=== PATIENT | female | born 1995 | race Caucasian/White ===

== ENCOUNTER 2020-01-12 08:42 | Outpatient (CLI) | payer OTHER, SELFPAY ==
--- NOTE | 2020-01-12 | EST_ITS ---
Patient Info Name: Flower Dupree Age: 24 years : 1995 Gender: Female Ht: 70 in Wt: 210 lbs BSA: 2.19 m2 HR: 69 bpm Technical Quality: Good Exam Date: 01/12/2020 9:42 AM Exam Location: [facility] Patient Status: Outpatient Admit Date: 01/12/2020 Staff Ordering Physician: Zac, Jaswinder Kwan MD Honing Job Setter: Lorena Alba RDCS Attending Provider: ZacJaswinder MD Referring Physician: Kevin POE; Exercise Technologist: Stephanie Jha RDCS Exam Type: CA stress echo Study Info Indications R06.02 - Shortness of breath Treadmill exercise stress echocardiogram is performed. Summary 1. Normal left venticular systolic function with no regional wall motion abnormalities noted at rest. 2. No regional wall motion abnormalities noted post stress. 3. Decreased exercise tolerance for age. 4. Hypertensive blood pressure response. 5. Accelerated heart rate response to exercise, with a heart rate of 136 at minute 2 of exercise suggesting deconditioning, anemia, inappropriate sinus tachycardia etc. 6. Negative stress echo for ischemia. Stress Echo Findings Left Ventricle Normal left venticular systolic function with no regional wall motion abnormalities noted at rest. Overall global left ventricular systolic function Improved post stress. No regional wall motion abnormalities noted post stress. Left Ventricle Left ventricular chamber dimension is normal. Left ventricular systolic function is Empty with an estimated ejection fraction of Empty. There is no increased left ventricular wall thickness. Left ventricular septal wall motion is normal. The left ventricular diastolic function is normal. Right Ventricle Right ventricular chamber dimension is normal. Right ventricular systolic function is normal. Left Atria Left atrial chamber dimension is normal. Right Atria Right atrial chamber dimension is normal. Aortic Valve The aortic valve is trileaflet. There is no aortic valve sclerosis. There is no aortic valve stenosis. There is no aortic valve regurgitation. Pulmonary Valve The pulmonic valve is normal. There is no pulmonic valve stenosis. There is no pulmonic regurgitation. Mitral Valve The mitral valve has normal leaflets. There is no mitral valve stenosis. There is no mitral valve regurgitation. Tricuspid Valve The tricuspid valve leaflets are normal. There is no significant tricuspid valve stenosis. There is no tricuspid valve regurgitation. No pulmonary hypertension, estimated pulmonary arterial systolic pressure is Empty. Pericardium The pericardium appears normal. There is no pericardial effusion. Inferior Vena Cava Normal inferior vena cava with <50% collapse upon inspiration consistent with Empty right atrial pressure, Empty. Aorta The aortic root size at the sinus of Valsalva is normal. The prox ascending aorta size is normal. Protocol: Alexander Stress ECG Details Stage: REST Duration (min): 7 min : 5 sec Speed (mph): 0.0 Grade (%): 0 HR (bpm): 77 SBP (mmHg): 128 DBP (mmHg): 75 METS: --- Stage: REST Duration (min): 25 min : 58 sec Speed (mph): 0.0 Grade (%): 0 HR (bpm): 92 SBP (mmHg): 128 DBP (mmHg): 75 METS: --- Stage: STAGE 1 Duration (min): 1 min : 0 sec Speed (mph):
== END 2020-01-12 08:43 | disposition home or self-care (01) ==
LOC: ANHCARD 08:44
PROVIDERS: PCP Internal Medicine; Visit Provider Family Medicine
DX: R06.02 Shortness of breath (principal)
CPT/HCPCS: 93351

== ENCOUNTER 2022-09-08 08:58 | Outpatient (CLI) | payer OTHER, SELFPAY ==
--- NOTE | 2022-09-29 11:36 | WPDSLEEPSTUD ---
Sleep Study Date of Study: 09/08/22 Ordering Provider: Mg Austin APRN Interpreting Physician: Julieta Long MD Sleep Study Type: Split Polysomnogram Height: 1.78 m Weight: 104.326 kg Body Mass Index: 33.0 Neck Circumference (inches): 14.5 [place]: 19 Reason for Sleep Study Hypersomnolence Sleep History Flower Dupree is a 27-year-old female Who occasionally awakens from sleep feeling short of breath. She constantly awakens at night with heartburn, belching or coughing. She occasionally snores, rarely loud enough that others complain about it. She constantly has difficulty sleeping with a cold. She occasionally wakes up gasping for breath at night. She does not have breathing problems at night observed by others. She occasionally sweats excessively at night. She frequently notices her heart pounding or beating irregularly at night. She frequently falls asleep during the day, frequently falls asleep involuntarily, never while driving. She rarely has loss of muscle tone with strong emotion. 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 She occasionally feels paralyzed on waking or falling asleep. She occasionally has vivid dreamlike scenes on waking or falling asleep. She rarely feels afraid to go to sleep. She frequently has nightmares. She occasionally remembers her dreams. She constantly has racing thoughts. She rarely feels sad or depressed. She rarely feels anxious. She constantly has muscular tension. She occasionally notices parts of her body jerking. She does not kick at night. She occasionally has crawling and aching feelings in her legs. She occasionally has leg pain at night. She rarely has morning jaw pain. She frequently grinds her teeth during sleep. She constantly is bothered by pain during the day. She occasionally is awakened by pain at night. She constantly wakes up feeling stiff in the morning occasionally with sore achy muscles. She frequently wakes up with pain in the neck and spine. She has fatigue, occasional panic, memory problems headaches and depression. She has insomnia and concentration difficulties. Normal bedtime Is between 10:30 p.m. and 11:00 p.m., falling asleep within 10 minutes but sometimes longer. Without trazodone, It takes longer to fall asleep and she wakes up more often. Without trazodone she may wake up 5 times or more. With trazodone she may wake up fewer than 5 times. Sometimes while awake she will think about things to put her mind at ease and try to fall asleep again. Her wake time is 7:00 a.m.. On weekends, bedtime is between 11:30 p.m. and 12 midnight, and she wakes between 7:00 a.m. and 9:30 a.m.. She takes naps in the afternoon or evening. A short nap lasting 10-15 minutes may be refreshing. She is usually drowsy for 3 hours after waking. She feels better in the evening compared to other times a day. Habits: Tobacco: none. Caffeine: none. Alcohol and recreational substances: none. 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
[2022-09-29 12:07] VITALS: BMI 33.0
== END 2022-09-09 06:50 | disposition home or self-care (01) ==
LOC: ANHCSM 09:01
PROVIDERS: PCP Internal Medicine; Visit Provider Nurse Practitioner Family
DX: G47.33 Obstructive sleep apnea (adult) (pediatric) (principal); G47.61 Periodic limb movement disorder; G47.10 Hypersomnia, unspecified; Z68.33 Body mass index [BMI] 33.0-33.9, adult
CPT/HCPCS: 95811

== ENCOUNTER 2022-12-05 08:45 | Outpatient (CLI) | payer OTHER, SELFPAY ==
--- NOTE | ~2022-12-05 | MR_ITS ---
MRI of the lumbar spine Clinical History: Back pain Technique: Axial T2-weighted images, and sagittal T1-weighted, T2-weighted, and T2 fat-sat images wer e acquired. Findings: There is no fracture or subluxation of lumbar spine. Vertebral bodies maintain normal heigh t and alignment. There are reactive marrow signal changes about the L4-L5 and L5-S1 disc spaces due t o underlying degenerative disc disease. At L1-L2, there is no disc bulge or herniation. There is moderate facet arthropathy. No central canal stenosis or neural foraminal narrowing. At L2-L3, there is no disc bulge or herniation. There is mild facet arthropathy. No central canal chrystal nosis or neural foraminal narrowing. At L3-L4, there is mild disc protrusion with moderate facet arthropathy. No spinal canal stenosis or neural foraminal narrowing. At L4-L5, there is mild disc bulge. No spinal canal stenosis or neural foraminal narrowing. At L5-S1, there is advanced degenerative disc narrowing. No disc bulge or herniation. No spinal canal stenosis or neural foraminal narrowing. Paravertebral soft tissues are unremarkable. Impression: Mild degenerative spondylosis, as above. Reviewed, dictated and finalized at location . Impression: Mild degenerative spondylosis, as above.
== END 2022-12-05 08:46 | disposition home or self-care (01) ==
PROVIDERS: PCP Family Medicine; Visit Provider Family Medicine
DX: M54.50 Low back pain, unspecified (principal); M47.897 Other spondylosis, lumbosacral region; G89.29 Other chronic pain
CPT/HCPCS: 72148